=== PATIENT | male | born 1985 | race Caucasian/White ===

== ENCOUNTER 2016-10-08 14:54 | Emergency (ER) | payer MEDICAID, OTHER ==
[2016-10-08 15:08] VITALS: BP 142/84
--- NOTE | 2016-10-08 15:22 | ER Document Report ---
ED Medical Screen (RME) - General Chief Complaint: Flank Pain Stated Complaint: RIGHT SIDE PAIN,BLOOD IN URINE Time Seen by Provider: 10/08/16 15:17 Mode of Arrival: Ambulatory Information source: Patient TRAVEL OUTSIDE OF THE [place] IN LAST 30 DAYS: No - HPI Onset: Other - 3 DAYS Onset/Duration: Sudden, Waxing and waning Quality of pain: Dull Severity: Moderate Associated Symptoms: Other - GROSS HEMATURIA. denies: Chills, Fever, Nausea, Vomiting Exacerbated by: Denies Relieved by: Denies Similar symptoms previously: Yes - KIDNEY STONES Recently seen / treated by doctor: No Notes: 10/08/16 15:19 RAN OUT OF KETOROLAC 2 d AGO. - Related Data Smoking: Cigarettes, Less than 1 pack/day Frequency of alcohol use: Rare Drug Abuse: None Allergies/Adverse Reactions: No Known Allergies Allergy (Unverified 10/08/16 15:07) Past Medical History - General Information source: Patient - Social History Cigarette use (# per day): Yes Chew tobacco use (# tins/day): No Frequency of alcohol use: Rare Drug Abuse: None Lives with: Spouse/Significant other Family history: Reviewed & Not Pertinent - Past Medical History Cardiac Medical History: Reports: None Pulmonary Medical History: Reports: None Neurological Medical History: Reports: None Endocrine Medical History: Reports: None Renal/ Medical History: Reports: Hx Kidney Stones. Denies: Hx Peritoneal Dialysis Malignancy Medical History: Reports None GI Medical History: Reports: None Musculoskeltal Medical History: Reports None Psychiatric Medical History: Reports: None Surgical Hx: Negative Review of Systems - Review of Systems Constitutional: No symptoms reported. denies: Chills, Fever EENT: No symptoms reported Cardiovascular: No symptoms reported Respiratory: No symptoms reported Gastrointestinal: No symptoms reported. denies: Nausea Genitourinary: See HPI, Frequency, Flank pain, Hematuria, Urgency Musculoskeletal: No symptoms reported Skin: No symptoms reported Neurological/Psychological: No symptoms reported Physical Exam - Vital signs Vitals: Temp Pulse Resp BP Pulse Ox 98.3 F 94 16 142/84 H 98 10/08/16 15:07 10/08/16 15:07 10/08/16 15:07 10/08/16 15:07 10/08/16 15:07 Interpretation: Hypertensive. No: Tachycardic, Tachypneic, Febrile - General General appearance: Appears well, Alert In distress: None - HEENT Head: Normocephalic Eyes: Normal Ears: Normal Nasal: Normal Mouth/Lips: Normal Mucous membranes: Normal - Respiratory Respiratory status: No respiratory distress - Cardiovascular Rhythm: Regular - Abdominal Inspection: Normal Distension: No distension - Back Back: Normal, CVA tenderness - RIGHT - Extremities General upper extremity: Normal inspection General lower extremity: Normal inspection. No: Edema - Neurological Neuro grossly intact: Yes - Psychological Associated symptoms: Normal affect, Normal mood - Skin Skin Temperature: Warm Skin Moisture: Dry Skin Color: Normal Skin Turgor: Elastic Course - Vital Signs Vital signs: Temp Pulse Resp BP Pulse Ox 98.3 F 94 16 142/84 H 98 10/08/16 15:07 10/08/16 15:07 10/08/16 15:07 10/08/16 15:07 10/08/16 15:07 Doctor's Discharge - Discharge Clinical Impression: Right flank pain, History of nephrolithiasis Condition: Stable Disposition: HOME, SELF-CARE Instructions: Oral Narcotic Medication ([facility]), Anti-Inflammatory Medication ([facility] ), Kidney Stone ([facility]) Additional Instructions: DRINK PLENTY OF FLUIDS. YOU MAY TAKE TORADOL FOR PAIN CONTROL IF NEEDED, BUT DO NOT TAKE IT MORE THAN 5 CONSECUTIVE DAYS. TAKE NORCO FOR PAIN CONTROL IF NEEDED. CONTINUE TAKING FLOMAX DIRECTED. FOLLOW UP WITH YOUR PRIMARY CARE PROVIDER OR WITH UROLOGIST FOR ON-GOING CARE. RETURN TO E.R. IF YOU GET WORSE IN ANY WAY. Prescriptions: Hydrocodone/Acetaminophen [[place] 5-325 mg Tablet] 1 tab PO Q4HP PRN #14 tablet PRN Reason: For Pain Ketorolac Tromethamine 10 mg PO Q4HP PRN #30 tablet PRN Reason:
== END 2016-10-08 15:37 | disposition home or self-care (01) ==
LOC: ER 14:54
DX: R10.9 Unspecified abdominal pain (principal); R31.9 Hematuria, unspecified; F17.210 Nicotine dependence, cigarettes, uncomplicated
CPT/HCPCS: 99283

== ENCOUNTER 2017-08-21 22:07 | Emergency (ER) | payer BC, OTHER ==
[2017-08-21] MEDS ORDERED: KETOROLAC TROMETHAMINE 60 MG/2 ML SDV IM ONE (23:49)
--- NOTE | 2017-08-21 23:51 | ER Document Report ---
ED Medical Screen (RME) - General Chief Complaint: Possible Kidney Stone Stated Complaint: FLANK PAIN Time Seen by Provider: 08/21/17 23:49 Mode of Arrival: Ambulatory Information source: Patient Notes: Patient is a 32-year-old male with a history of kidney stones who presents to the ER today for 2 days of intermittent left flank pain radiating to the left lower abdomen and into the left testicle. Patient denies burning with urination or blood in his urine. He states that he recently had a CAT scan approximately 2 months ago that did show a small stone in the left kidney. He states he has never had surgery for kidney stones as they are "always too small for surgery." He does usually pass them on his own. TRAVEL OUTSIDE OF THE [place] IN LAST 30 DAYS: No - Related Data Allergies/Adverse Reactions: No Known Allergies Allergy (Unverified 10/08/16 15:07) Past Medical History - General Information source: Patient - Social History Family history: Reviewed & Not Pertinent Renal/ Medical History: Reports: Hx Kidney Stones. Denies: Hx Peritoneal Dialysis Review of Systems - Review of Systems Genitourinary: See HPI Physical Exam - Vital signs Vitals: Temp Pulse Resp BP Pulse Ox 99.2 F 90 18 128/79 H 98 08/21/17 22:46 08/21/17 22:46 08/21/17 22:46 08/21/17 22:46 08/21/17 22:46 - Notes Notes: PHYSICAL EXAMINATION: GENERAL: Well-appearing and in no acute distress. ABDOMEN: Soft, no tenderness. No guarding, no rebound GI/: Mild left CVA tenderness Course - Vital Signs Vital signs: Temp Pulse Resp BP Pulse Ox 99.2 F 90 18 128/79 H 98 08/21/17 22:46 08/21/17 22:46 08/21/17 22:46 08/21/17 22:46 08/21/17 22:46
[2017-08-22 00:05] LABS: APPEARANCE,URINE CLEAR; BILIRUBIN,URINE NEGATIVE (NEGATIVE); COLOR,URINE YELLOW; GLUCOSE, URINE NEGATIVE (NEGATIVE); KETONES,URINE NEGATIVE (NEGATIVE); LEUKOCYTE ESTERASE,URINE NEGATIVE (NEGATIVE); NITRITE,URINE NEGATIVE (NEGATIVE); PROTEIN,URINE NEGATIVE (NEGATIVE); URINE SPECIFIC GRAVITY 1.025
[2017-08-22 00:34] LABS: ABSOLUTE BASOPHILS # (AUTO) 0.1 10^3/uL (0.0-0.2); ABSOLUTE EOSINOPHILS # (AUTO) 0.1 10^3/uL (0.0-0.6); ABSOLUTE LYMPHOCYTES (AUTO) 3.1 10^3/uL (0.5-4.7); ABSOLUTE MONOCYTES (AUTO) 0.8 10^3/uL (0.1-1.4); ABSOLUTE NEUT (AUTO) 7.2 10^3/uL (1.7-8.2); BASOPHILS % (AUTO) 0.9 % (0-2); EOSINOPHILS % (AUTO) 0.9 % (0-6); LYMPHOCYTES % (AUTO) 27.3 % (13-45); MEAN CORPUSCULAR HEMOGLOBIN 29.6 pg (27.0-33.4); MEAN CORPUSCULAR VOLUME 87 fl (80-97); MONOCYTES % (AUTO) 6.8 % (3-13); PLATELET COUNT 250 10^3/uL (150-450); RED CELL DISTRIBUTION WIDTH 13.1 % (11.5-14.0); SEGMENTED NEUTROPHILS % (AUTO) 64.1 % (42-78); TOTAL CELLS COUNTED % (AUTO) 100 %; WHITE BLOOD COUNT 11.2 10^3/uL (4.0-10.5)
[2017-08-22 00:50] LABS: ALANINE AMINOTRANSFERASE 42 U/L (21-72); ALBUMIN 4.4 g/dL (3.5-5.0); ALKALINE PHOSPHATASE 51 U/L (38-126); ANION GAP 15 (5-19); ASPARTATE AMINO TRANSFERASE 29 U/L (17-59); BILIRUBIN,DIRECT 0.3 mg/dL (0.0-0.4); BILIRUBIN,TOTAL 0.4 mg/dL (0.2-1.3); BLOOD UREA NITROGEN 12 mg/dL (7-20); CARBON DIOXIDE 26 mmol/L (22-30); CHLORIDE 103 mmol/L (98-107); GLUCOSE 91 mg/dL (75-110); POTASSIUM 4.2 mmol/L (3.6-5.0); SODIUM 143.7 mmol/L (137-145); TOTAL PROTEIN 7.3 g/dL (6.3-8.2)
--- NOTE | 2017-08-22 01:23 | RADIOLOGY REPORT (SQ) ---
EXAM DESCRIPTION: Complete renal ultrasound. CLINICAL HISTORY: left flank pain, hx stones COMPARISON: None. TECHNIQUE: Real-time sonographic images of the retroperitoneum were obtained using a curved multi hertz transducer. FINDINGS: The right kidney measures 12.3 cm in length. The left kidney measures 12.4 cm in length. No solid masses identified. No hydronephrosis. 1.0 cm echogenic foci involving the inferior pole of the right kidney. This could represent a nonobstructing calculus. There is a 1.0 cm echogenic focus in the interpolar left kidney. This could also represent a nonobstructing calculus. Decompressed urinary bladder. No definite abnormalities identified. IMPRESSION: 1. Possible bilateral nonobstructing 1.0 cm nephrolithiasis. No hydronephrosis.
--- NOTE | 2017-08-22 01:32 | ER Document Report ---
ED GI/ - General Chief Complaint: Possible Kidney Stone Stated Complaint: FLANK PAIN Time Seen by Provider: 08/21/17 23:49 Mode of Arrival: Ambulatory Information source: Patient Notes: Patient is a 32-year-old male with a history of kidney stones who presents to the ER today for 2 days of intermittent left flank pain radiating to the left lower abdomen and into the left testicle. Patient denies burning with urination or blood in his urine. He states that he recently had a CAT scan approximately 2 months ago that did show a small stone in the left kidney. He states he has never had surgery for kidney stones as they are "always too small for surgery." He does usually pass them on his own. TRAVEL OUTSIDE OF THE [place] IN LAST 30 DAYS: No - Related Data Allergies/Adverse Reactions: No Known Allergies Allergy (Verified 08/21/17 23:58) Past Medical History - General Information source: Patient - Social History Smoking Status: Current Every Day Smoker Chew tobacco use (# tins/day): No Frequency of alcohol use: None Drug Abuse: None Family History: Reviewed & Not Pertinent Patient has suicidal ideation: No Patient has homicidal ideation: No Renal/ Medical History: Reports: Hx Kidney Stones. Denies: Hx Peritoneal Dialysis Review of Systems - Review of Systems Constitutional: No symptoms reported EENT: No symptoms reported Cardiovascular: No symptoms reported Respiratory: No symptoms reported Gastrointestinal: No symptoms reported Genitourinary: See HPI Male Genitourinary: No symptoms reported Musculoskeletal: No symptoms reported Skin: No symptoms reported Hematologic/Lymphatic: No symptoms reported Neurological/Psychological: No symptoms reported Physical Exam - Vital signs Vitals: Temp Pulse Resp BP Pulse Ox 99.2 F 90 18 128/79 H 98 08/21/17 22:46 08/21/17 22:46 08/21/17 22:46 08/21/17 22:46 08/21/17 22:46 - Notes Notes: PHYSICAL EXAMINATION: GENERAL: uncomfortable, in no acute distress. HEAD: Atraumatic, normocephalic. EYES: Pupils equal round and reactive to light, extraocular movements intact, sclera anicteric, conjunctiva are normal. NECK: Normal range of motion, supple without lymphadenopathy LUNGS: CTAB and equal. No wheezes rales or rhonchi. HEART: Regular rate and rhythm without murmurs ABDOMEN: Soft, no tenderness. No guarding, no rebound BACK: no vertebral tenderness, normal ROM GI/: left CVA tenderness EXTREMITIES: Normal range of motion, no pitting edema. No cyanosis. NEUROLOGICAL: Cranial nerves grossly intact. Normal sensory/motor exams. SKIN: Warm, Dry, normal turgor, no rash Course - Re-evaluation Re-evalutation: 08/22/17 04:18 urinalysis has moderate blood. WBC normal, no signs of infection on UA. bilateral nonobstructing 1cm kidney stones, no hydronephrosis or hydroureter, with flank pain I will treat with pain medication and zofran and have pt follow up with urologist. - Vital Signs Vital signs: Temp Pulse Resp BP Pulse Ox 98.0 F 73 14 134/83 H 96 08/22/17 02:08 08/22/17 02:08 08/22/17 02:08 08/22/17 02:08 08/22/17 02:08 - Laboratory Result Diagrams: 08/22/17 00:15 08/22/17 00:15 Laboratory results interpreted by me: 08/21/17 08/22/17 23:20 00:15 WBC 11.2 H Urine Blood MODERATE H Urine Urobilinogen 2.0 H Discharge - Discharge Clinical Impression: Kidney stone on left side Condition: Stable Disposition: HOME, SELF-CARE Additional Instructions: Return immediately for any new or worsening symptoms. Follow up with urologist, call tomorrow to make followup appointment. Prescriptions: Ondansetron [Zofran Odt 4 mg Tablet] 1 - 2 tab PO Q4H PRN #30 tab.rapdis PRN Reason: For Nausea/Vomiting Oxycodone HCl/Acetaminophen [Percocet 5-325 mg Tablet] 1 - 2 tab PO Q4H PRN #15 tablet PRN Reason: Forms: Return to Work
[2017-08-22 02:10] VITALS: BP 134/83
== END 2017-08-22 02:10 | disposition home or self-care (01) ==
LOC: ER 22:07
DX: N20.0 Calculus of kidney (principal); F17.200 Nicotine dependence, unspecified, uncomplicated
CPT/HCPCS: 99284; 96372; 36415; 85025; 80053; 81001; 76770; J1885